=== PATIENT | male | born 1995 | race Caucasian/White ===

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

== ENCOUNTER 2018-12-27 00:04 | Inpatient (IN) | payer OTHER | END 2018-12-27 10:34 | disposition left against medical advice (07) | LOC: FER 00:04 → FM/S 02:15 ==

== ENCOUNTER 2019-04-09 16:18 | Inpatient (IN) | payer OTHER ==
[2019-04-09 19:36] VITALS: BMI 16.2
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
[2019-04-09] MEDS ORDERED: BISMUTH SUBSALICYLATE 524 MG/30 ML UD PO PRN (20:39)
[2019-04-09] MEDS ORDERED: MENTHOL/PHENOL 1 EACH UD MM PRN (20:39)
[2019-04-09] MEDS ORDERED: MAGNESIUM HYDROX 2400MG/30ML ORAL SUSPENSION 30 ML CUP PO PRN (20:39)
[2019-04-09] MEDS ORDERED: ACETAMINOPHEN 325 MG TABLET (FP) PO PRN ×2 (20:39)
[2019-04-09] MEDS ORDERED: guaiFENesin 200 MG/10 ML 10 ML UNIT-DOSE CUPS PO PRN (20:39)
[2019-04-09] MEDS ORDERED: DICYCLOMINE HCL 10 MG CAPSULE PO PRN (20:39)
[2019-04-09] MEDS ORDERED: MAG HYDROX/AL HYDROX/SIMETH 30 ML UNIT-DOSE CUP PO PRN (20:39)
[2019-04-09] MEDS ORDERED: NICOTINE POLACRILEX 2 MG GUM BUC PRN (20:39)
[2019-04-09] MEDS ORDERED: MELATONIN 5 MG TABLETS PO PRN (20:39)
[2019-04-09] MEDS ORDERED: ONDANSETRON *ODT* 4 MG TABLET SL PRN (20:39)
[2019-04-09] MEDS ORDERED: IBUPROFEN 400 MG TABLET (FP) PO PRN (20:39)
[2019-04-09] MEDS ORDERED: MAGNESIUM CITRATE 300 ML BOTTLE PO PRN (20:39)
[2019-04-09] MEDS ORDERED: P-EPHED 60MG/TRIPROLIDI 2.5MG TABLET PO PRN (20:39)
[2019-04-09] MEDS: METHOCARBAMOL 500 MG TABLET PO PRN (22:26)
[2019-04-09] MEDS: diazePAM 5 MG TABLET PO PRN (22:26)
[2019-04-09] MEDS: cloNIDine HCL 0.1 MG TABLET PO PRN (22:26)
[2019-04-09] MEDS: THIAMINE HCL 100 MG TABLET (FP) PO SCH (22:26)
[2019-04-09] MEDS: diazePAM 5 MG TABLET PO SCH (22:28)
[2019-04-10] MEDS: diazePAM 5 MG TABLET PO SCH ×3 (05:33→22:35)
[2019-04-10 09:49] LABS: HEMATOCRIT 36.6 % (35.4-49); HEMOGLOBIN 12.2 GM/dL (11.7-16.9); MCH 29.7 pg (25.7-33.7); MCHC 33.4 g/dl (32.0-35.9); MEAN PLT VOLUME 8.6 fl (7.5-11.1); PLATELET COUNT 246 K/MM3 (134-434); RBC 4.11 M/mm3 (4.00-5.60); RDW 15.5 % (11.9-15.9); WHITE BLOOD COUNT 7.3 K/mm3 (4.0-10.0)
[2019-04-10 10:02] LABS: ALBUMIN 3.6 g/dl (3.4-5.0); BILIRUBIN,TOTAL 0.7 mg/dL (0.2-1); BLOOD UREA NITROGEN 13.6 mg/dL (7-18); CALCIUM 9.1 mg/dL (8.5-10.1); CREATININE 1.1 mg/dL (0.55-1.3); POTASSIUM 4.3 mmol/L (3.5-5.1); TOT PROT 6.4 g/dl (6.4-8.2)
--- NOTE | 2019-04-10 10:03 | CONSULT ---
[facility] Psychiatric Consult - Data Date of interview: 04/10/19 Admission source: Self-referred Identifying data: Mr Butler is a 23 years old single male, student at [employer], living with father seeking detox treatment for opioid and benzodiazepine Substance Abuse History: Reports history of fentanyl, non rx methadone, klonopin and xanax use. Refer to addiction counselor's summary for further information Medical History: Unremarkable. Smokes 5 cigarettes daily Psychiatric History: Reports that his first psychiatric contact was in 2011 while in . He saw Dr Gutierrez, a private psychiatrist at [place], [place], he was diagnosed with ADHD, IGNACIO and depression and he was started on Adderall. In May 2018, he started seeing Dr Buddy Moore, a private psychiatrist in [facility] and he was prescribed Vyvanse 30 mg/day, Lyrica 75 mg/ day and Seroquel 100 mg/hs. Denies previous psychiatric hospitalization or suicidal attempt. At present, reports feeling depressed, anxious and sleeping poorly Physical/Sexual Abuse/Trauma History: Denies history of emotional, physical or sexual abuse as well as DV relationship Additional Comment: Reports having an open case on charges of possession Mental Status Exam - Mental Status Exam Alert and Oriented to: Time, Place, Person Cognitive Function: Fair Patient Appearance: Disheveled Mood: Depressed, Anxious (mildly) Affect: Appropriate Patient Behavior: Cooperative Speech Pattern: Clear Voice Loudness: Normal Thought Process: Intact, Goal Oriented Thought Disorder: Not Present Hallucinations: Denies Suicidal Ideation: Denies Homicidal Ideation: Denies Insight/Judgement: Poor Sleep: Poorly Appetite: Fair Muscle strength/Tone: Normal Gait/Station: Normal Psychiatric Findings - Problem List ([place] 1, 2,3) (1) ADHD (attention deficit hyperactivity disorder) Current Visit: Yes Status: Chronic (2) Anxiety disorder Current Visit: Yes Status: Chronic (3) IGNACIO (generalized anxiety disorder) Current Visit: Yes Status: Ruled-out (4) Opioid dependence with withdrawal Current Visit: No Status: Acute (5) Sedative, hypnotic or anxiolytic dependence with withdrawal, uncomplicated Current Visit: Yes Status: Acute (6) Nicotine dependence Current Visit: Yes Status: Chronic Qualifiers: Nicotine product type: cigarettes Substance use status: uncomplicated Qualified Code(s): F17.210 - Nicotine dependence, cigarettes, uncomplicated (7) Substance induced mood disorder Current Visit: Yes Status: Acute (8) Substance-induced sleep disorder Current Visit: Yes Status: Acute - Initial Treatment Plan Initial Treatment Plan: 1) Continue Seroquel 100 mg po HS. 2) Continue inpatient detoxification
[2019-04-10] MEDS: NICOTINE 14 MG/24 HOURS TOPICAL PATCH TD SCH (11:04)
[2019-04-10] MEDS: PRENATAL VITAMINS W/ FOLIC ACID TABLET (FP) PO SCH (11:04)
--- NOTE | 2019-04-10 11:26 | PN ---
S CIWA - CIWA Score Nausea/Vomitin Muscle Tremors: 2 Anxiety: 2 Agitation: 2 Paroxysmal Sweats: 1-Minimal Palms Moist Orientation: 0-Oriented Tacttile Disturbances: 1-Very Mild Itch/Numbness Auditory Disturbances: 0-None Visual Disturbances: 0-None Headache: 2-Mild CIWA-Ar Total Score: 12 BHS Progress Note (SOAP) Subjective: alert,irritable.anxious,interrupted sleep,tremor Objective: 04/10/19 11:24 Vital Signs Temperature 97.6 F 04/10/19 09:07 Pulse Rate 68 04/10/19 09:07 Respiratory Rate 18 04/10/19 09:07 Blood Pressure 108/55 L 04/10/19 09:07 O2 Sat by Pulse Oximetry (%) 04/10/19 11:25 Laboratory Last Values WBC 7.3 K/mm3 (4.0-10.0) 04/10/19 08:20 RBC 4.11 M/mm3 (4.00-5.60) 04/10/19 08:20 Hgb 12.2 GM/dL (11.7-16.9) 04/10/19 08:20 Hct 36.6 % (35.4-49) 04/10/19 08:20 MCV 89.0 fl (80-96) 04/10/19 08:20 MCH 29.7 pg (25.7-33.7) 04/10/19 08:20 MCHC 33.4 g/dl (32.0-35.9) 04/10/19 08:20 RDW 15.5 % (11.9-15.9) 04/10/19 08:20 Plt Count 246 K/MM3 (134-434) 04/10/19 08:20 MPV 8.6 fl (7.5-11.1) 04/10/19 08:20 Sodium 138 mmol/L (136-145) 04/10/19 08:20 Potassium 4.3 mmol/L (3.5-5.1) 04/10/19 08:20 Chloride 103 mmol/L (98-107) 04/10/19 08:20 Carbon Dioxide 31 mmol/L (21-32) 04/10/19 08:20 Anion Gap 4 MMOL/L (8-16) L 04/10/19 08:20 BUN 13.6 mg/dL (7-18) 04/10/19 08:20 Creatinine 1.1 mg/dL (0.55-1.3) 04/10/19 08:20 Est GFR (CKD-EPI)AfAm 110.63 04/10/19 08:20 Est GFR (CKD-EPI)NonAf 95.45 04/10/19 08:20 Random Glucose 79 mg/dL (74-106) 04/10/19 08:20 Calcium 9.1 mg/dL (8.5-10.1) 04/10/19 08:20 Total Bilirubin 0.7 mg/dL (0.2-1) 04/10/19 08:20 AST 24 U/L (15-37) 04/10/19 08:20 ALT 35 U/L (13-61) 04/10/19 08:20 Alkaline Phosphatase 117 U/L (45-117) 04/10/19 08:20 Total Protein 6.4 g/dl (6.4-8.2) 04/10/19 08:20 Albumin 3.6 g/dl (3.4-5.0) 04/10/19 08:20 Assessment: 04/10/19 11:25 withdrawal symptom Plan: continue detox valium regimen
[2019-04-10] MEDS: diazePAM 5 MG TABLET PO PRN (16:41)
[2019-04-10] MEDS: METHOCARBAMOL 500 MG TABLET PO PRN (16:45)
[2019-04-10] MEDS: cloNIDine HCL 0.1 MG TABLET PO PRN (19:42)
[2019-04-10] MEDS: hydrOXYzine PAMOATE 25 MG CAPSULE (FP) PO PRN (19:42)
[2019-04-10] MEDS: THIAMINE HCL 100 MG TABLET (FP) PO SCH (22:35)
[2019-04-10] MEDS: QUEtiapine FUMARATE 100 MG TABLET (FP) PO SCH (22:35)
[2019-04-11] MEDS: diazePAM 5 MG TABLET PO SCH ×2 (05:25→17:44)
[2019-04-11] MEDS: cloNIDine HCL 0.1 MG TABLET PO PRN (05:27)
[2019-04-11] MEDS: hydrOXYzine PAMOATE 25 MG CAPSULE (FP) PO PRN (05:27)
[2019-04-11] MEDS: PRENATAL VITAMINS W/ FOLIC ACID TABLET (FP) PO SCH (10:29)
[2019-04-11] MEDS: NICOTINE 14 MG/24 HOURS TOPICAL PATCH TD SCH (10:30)
--- NOTE | 2019-04-11 12:06 | PN ---
S CIWA - CIWA Score Nausea/Vomitin-No Nausea/No Vomiting Muscle Tremors: 3 Anxiety: 2 Agitation: 3 Paroxysmal Sweats: 2 Orientation: 0-Oriented Tacttile Disturbances: 0-None Auditory Disturbances: 0-None Visual Disturbances: 0-None Headache: 0-None Present CIWA-Ar Total Score: 10 S Progress Note (SOAP) Subjective: sweats tired interrupted sleep Objective: 04/11/19 12:05 Vital Signs Temperature 98.4 F 04/11/19 09:10 Pulse Rate 109 H 04/11/19 09:10 Respiratory Rate 04/11/19 09:10 Blood Pressure 104/66 04/11/19 09:10 O2 Sat by Pulse Oximetry (%) Laboratory Tests 04/10/19 04/10/19 04/10/19 08:20 08:20 08:20 WBC 7.3 RBC 4.11 Hgb 12.2 Hct 36.6 MCV 89.0 MCH 29.7 MCHC 33.4 RDW 15.5 Plt Count 246 MPV 8.6 Sodium 138 Potassium 4.3 Chloride 103 Carbon Dioxide 31 Anion Gap 4 L BUN 13.6 Creatinine 1.1 Est GFR (CKD-EPI)AfAm 110.63 Est GFR (CKD-EPI)NonAf 95.45 Random Glucose 79 Calcium 9.1 Total Bilirubin 0.7 AST 24 ALT 35 Alkaline Phosphatase 117 Total Protein 6.4 Albumin 3.6 RPR Titer Nonreactive labs noted aaox3 ambulating no acute distress Assessment: 04/11/19 12:05 withdrawals Plan: continue detox increase fluids
--- NOTE | 2019-04-11 13:37 | PN ---
[facility] Progress Note Note: had one [place] fever 103.5 denied coughing no abdominal pain alert,oriented x 3 neck supple,no pain,no stiff neck no ua fever treatment encourage oral fluis ,pitcher of water ua motrin 400 mgs po given close monitoring cbc now
[2019-04-11 18:13] LABS: HEMATOCRIT 35.9 % (35.4-49); HEMOGLOBIN 12.2 GM/dL (11.7-16.9); MCH 29.9 pg (25.7-33.7); MCHC 33.9 g/dl (32.0-35.9); MEAN CELL VOLUME 88.1 fl (80-96); MEAN PLT VOLUME 8.6 fl (7.5-11.1); PLATELET COUNT 298 K/MM3 (134-434); RBC 4.07 M/mm3 (4.00-5.60); RDW 14.9 % (11.9-15.9); WHITE BLOOD COUNT 10.1 K/mm3 (4.0-10.0)
[2019-04-11] MEDS: THIAMINE HCL 100 MG TABLET (FP) PO SCH (22:43)
[2019-04-11] MEDS: QUEtiapine FUMARATE 100 MG TABLET (FP) PO SCH (22:43)
[2019-04-11] MEDS: diazePAM 5 MG TABLET PO PRN (22:45)
[2019-04-11] MEDS: METHOCARBAMOL 500 MG TABLET PO PRN (22:47)
[2019-04-12] MEDS: diazePAM 5 MG TABLET PO PRN (02:59)
[2019-04-12] MEDS ORDERED: diazePAM 5 MG TABLET PO ONE (06:00)
--- NOTE | 2019-04-12 08:22 | DS ---
[facility] Detox Discharge Summary Admission Date: 04/09/19 Discharge Date: 04/12/19 - History Present History: Cocaine Dependence, Opioid Dependence, Sedative Dependence - Physical Exam Results Vital Signs: Vital Signs Temperature 96 F L 04/12/19 07:30 Pulse Rate 78 04/12/19 07:30 Respiratory Rate 18 04/12/19 07:30 Blood Pressure 103/53 L 04/12/19 07:30 O2 Sat by Pulse Oximetry (%) Pertinent Admission Physical Exam Findings: pt arrived in withdrawals Laboratory Tests 04/10/19 04/10/19 04/10/19 08:20 08:20 08:20 WBC 7.3 RBC 4.11 Hgb 12.2 Hct 36.6 MCV 89.0 MCH 29.7 MCHC 33.4 RDW 15.5 Plt Count 246 MPV 8.6 Sodium 138 Potassium 4.3 Chloride 103 Carbon Dioxide 31 Anion Gap 4 L BUN 13.6 Creatinine 1.1 Est GFR (CKD-EPI)AfAm 110.63 Est GFR (CKD-EPI)NonAf 95.45 Random Glucose 79 Calcium 9.1 Total Bilirubin 0.7 AST 24 ALT 35 Alkaline Phosphatase 117 Total Protein 6.4 Albumin 3.6 RPR Titer Nonreactive 04/11/19 14:50 WBC 10.1 H RBC 4.07 Hgb 12.2 Hct 35.9 MCV 88.1 MCH 29.9 MCHC 33.9 RDW 14.9 Plt Count 298 D MPV 8.6 Sodium Potassium Chloride Carbon Dioxide Anion Gap BUN Creatinine Est GFR (CKD-EPI)AfAm Est GFR (CKD-EPI)NonAf Random Glucose Calcium Total Bilirubin AST ALT Alkaline Phosphatase Total Protein Albumin RPR Titer Vital Signs Temperature 96 F L 04/12/19 07:30 Pulse Rate 78 04/12/19 07:30 Respiratory Rate 18 04/12/19 07:30 Blood Pressure 103/53 L 04/12/19 07:30 O2 Sat by Pulse Oximetry (%) pt feeling better aaox3 ambulating no acute distress - Treatment Hospital Course: Detox Protocol Followed, Detoxed Safely, Responded well, Discharged Condition Good, Rehab Referral Accepted Patient has Accepted a Rehab Referral to: [facility] [place] - Medication Discharge Medications: Ambulatory Orders Lisdexamfetamine Dimesylate [Vyvanse] 30 mg PO BID 12/27/18 Pregabalin [Lyrica] 75 mg PO TID 12/27/18 Quetiapine Fumarate [Seroquel -] 100 mg PO HS 04/05/19 - Diagnosis (1) Depressed affect Current Visit: Yes Status: Acute (2) Sedative, hypnotic or anxiolytic dependence with withdrawal, uncomplicated Current Visit: Yes Status: Chronic (3) Substance induced mood disorder Current Visit: Yes Status: Acute (4) Substance-induced sleep disorder Current Visit: Yes Status: Acute (5) ADHD (attention deficit hyperactivity disorder) Current Visit: Yes Status: Chronic (6) Anxiety disorder Current Visit: Yes Status: Chronic (7) Nicotine dependence Current Visit: Yes Status: Chronic Qualifiers: Nicotine product type: cigarettes Substance use status: uncomplicated Qualified Code(s): F17.210 - Nicotine dependence, cigarettes, uncomplicated (8) Drug-induced mood disorder Current Visit: Yes Status: Suspected (9) IGNACIO (generalized anxiety disorder) Current Visit: Yes Status: Ruled-out (10) Opioid dependence with withdrawal Current Visit: Yes Status: Chronic (11) Cocaine dependence, uncomplicated Current Visit: Yes Status: Chronic - AMA Did Patient Leave Against Medical Advice: No
[2019-04-12 09:41] VITALS: BP 126/72; PULSE 103; TEMP 98
[2019-04-12] MEDS: NICOTINE 14 MG/24 HOURS TOPICAL PATCH TD SCH (11:13)
[2019-04-12] MEDS: PRENATAL VITAMINS W/ FOLIC ACID TABLET (FP) PO SCH (11:13)
[2019-04-12 12:25] LABS: URINE APPEARANCE CLEAR; URINE BILIRUBIN NEGATIVE (NEGATIVE); URINE COLOR YELLOW; URINE GLUCOSE (UA) NEGATIVE (NEGATIVE); URINE KETONE NEGATIVE (NEGATIVE); URINE LEUK ESTERASE NEGATIVE (NEGATIVE); URINE NITRITE NEGATIVE (NEGATIVE); URINE PROTEIN NEGATIVE (NEGATIVE); URINE UROBILINOGEN 0.2 mg/dL (0.2-1.0)
== END 2019-04-12 10:37 | disposition home or self-care (01) | DRG 773 ==
LOC: YASAS 16:18 → Y6N 21:20
PROVIDERS: ADMIT Surgery; ATTEND Surgery
PROC: HZ2ZZZZ Detoxification Services for Substance Abuse Treatment (ICD-10-PCS; principal; 2019-04-09)
DX: F11.23 Opioid dependence with withdrawal (principal); F13.230 Sedative, hypnotic or anxiolytic dependence with withdrawal, uncomplicated; F14.20 Cocaine dependence, uncomplicated; F17.210 Nicotine dependence, cigarettes, uncomplicated; F19.282 Other psychoactive substance dependence with psychoactive substance-induced sleep disorder; F19.24 Other psychoactive substance dependence with psychoactive substance-induced mood disorder; F32.9 Major depressive disorder, single episode, unspecified; F41.9 Anxiety disorder, unspecified
CPT/HCPCS: 36415; 80053; 81003; 85027; 86480; 86593; J0735